=== PATIENT | male | born 1980 | race Caucasian/White ===

== ENCOUNTER 2017-10-17 21:31 | Observation (INO) | payer BC ==
--- NOTE | 2017-10-17 21:44 | PDOC ---
Rapid Medical Evaluation Time Seen by Provider: 10/17/17 21:40 Medical Evaluation: 10/17/17 21:41 I have performed a brief in person evaluation of this patient. The patient presents with chief complaint of : fainted after feeling nausea dizzy and abd pain. Pertinent PE findings: pale, diaphoresis I have ordered the following: ekg , labs The patient will proceed to the ER for further evaluation. 10/17/17 21:42
[2017-10-17] MEDS ORDERED: SODIUM CHLORIDE 0.9% 1000 ML INFUS.BAG IV ONE (21:56)
[2017-10-17 22:45] LABS: BASO % 0.2 % (0-2.0); EOS % 0.7 % (0-4.5); HEMATOCRIT 43.8 % (35.4-49); HEMOGLOBIN 14.1 GM/dL (11.7-16.9); LYMPH % 9.6 % (8-40); MCH 28.1 pg (25.7-33.7); MCHC 32.3 g/dl (32.0-35.9); MEAN PLT VOLUME 8.9 fl (7.5-11.1); MONO % 5.8 % (3.8-10.2); NEUT % 83.7 % (42.8-82.8); PLATELET COUNT 314 K/MM3 (134-434); RBC 5.03 M/mm3 (4.00-5.60); RDW 13.2 % (11.9-15.9); WHITE BLOOD COUNT 15.6 K/mm3 (4.0-10.0)
--- NOTE | 2017-10-17 22:54 | PDOC ---
History of Present Illness - General History Source: Patient, Family Exam Limitations: No Limitations - History of Present Illness Initial Comments: 10/17/17 22:55 The patient is a 36 year old male, with a significant past medical history of hypertension (on Ramipril 5mg), who presents to the emergency department s/p a syncopal episode approx. four hours ago. The patient reports that around 6pm after having a shake for dinner he began to feel dizzy, diaphoretic and nauseous while sitting on the couch watching television. The patient reports he walked to the bathroom where he syncopized and woke up on the floor. The patient reports he hit the front of his head on the floor. The patient reports that after the syncopal episode he still continued to feel lightheaded and nauseous. The patient reports he took 2 Tylenol after the syncopal episode with minor relief. The patient reports he had the exact same syncopal event happen approx. 3 years ago but reports he did not continue to feel dizzy after the syncopal episode. The patient also reports having two serious nosebleeds in the past week. He reports using a saline spray for the nosebleeds with minimal relief. He denies any recent fevers. He denies any recent, vomit, diarrhea or constipation. He denies any recent chest pain or shortness of breath. He denies any recent dysuria, frequency, urgency or hematuria. He denies recent swelling or calf tenderness. He denies recent travel or surgery. Allergies: NKA <Milo Monterroso - Last Filed: 10/17/17 22:54> <Danni Tellez - Last Filed: 10/18/17 00:09> - General Chief Complaint: Syncope/Near Syncope Stated Complaint: SYNCOPE/NEAR SYNCOPE Time Seen by Provider: 10/17/17 21:40 Past History <Milo Monterroso - Last Filed: 10/17/17 22:54> - Past Medical History COPD: No - Suicide/Smoking/Psychosocial Hx Smoking History: Never smoked Have you smoked in the past 12 months: No Information on smoking cessation initiated: No Hx Alcohol Use: No Drug/Substance Use Hx: No Substance Use Type: None <Danni Tellez - Last Filed: 10/18/17 00:09> - Past Medical History Allergies/Adverse Reactions: Allergies Allergy/AdvReac Type Severity Reaction Status Date / Time No Known Allergies Allergy Verified 10/17/17 21:53 Review of Systems - Review of Systems Comments:: 10/17/17 22:55 GENERAL/CONSTITUTIONAL: +Diaphoresis. No fever or chills. No weakness. HEAD, EYES, EARS, NOSE AND THROAT: No change in vision. No ear pain or discharge. No sore throat. CARDIOVASCULAR: No chest pain or shortness of breath. RESPIRATORY: No cough, wheezing, or hemoptysis. GASTROINTESTINAL: +Nausea. No vomiting, diarrhea or constipation. GENITOURINARY: No dysuria, frequency, or change in urination. MUSCULOSKELETAL: No joint or muscle swelling or pain. No neck or back pain. SKIN: No rash NEUROLOGIC: +Loss of consciousness. +Lightheadedness. No headache, or change in strength/sensation. ENDOCRINE: No increased thirst. No abnormal weight change. HEMATOLOGIC/LYMPHATIC: No anemia, easy bleeding, or history of blood clots. ALLERGIC/IMMUNOLOGIC: No hives or skin allergy. <Milo Monterroso - Last Filed: 10/17/17 22:54> *Physical Exam - Vital Signs Last Vital Signs Temp Pulse Resp BP Pulse Ox 98.9 F 45 L 18 70/40 99 10/17/17 21:48 10/17/17 21:48 10/17/17 21:48 10/17/17 21:48 10/17/17 21:48 - Physical Exam Comments: 10/17/17 22:56 GENERAL: Awake, alert, and fully oriented, in no acute distress HEAD: No signs of trauma EYES: PERRLA, EOMI, sclera anicteric, conjunctiva clear ENT: Auricles normal inspection, hearing grossly normal, nares patent, oropharynx clear without exudates. Moist mucosa NECK: Normal ROM, supple, no lymphadenopathy, JVD, or masses LUNGS: Breath sounds equal, clear to auscultation bilaterally. No wheezes, and no crackles HEART: Regular rate and rhythm, normal S1 and S2, no murmurs, rubs or gallops ABDOMEN: Soft, nontender, normoactive bowel sounds. No guarding, no rebound. No masses EXTREMITIES: Normal range of motion, no edema. No clubbing or cyanosis. No cords, erythema, or tenderness NEUROLOGICAL: Cranial nerves II through XII grossly intact. Normal speech, normal gait SKIN: Warm, Dry, normal turgor, no rashes or lesions noted. <Milo Monterroso - Last Filed: 10/17/17 22:54> - Vital Signs Last Vital Signs Temp Pulse Resp BP Pulse Ox 98.9 F 45 L 18 70/40 99 10/17/17 21:48 10/17/17 21:48 10/17/17 21:48 10/17/17 21:48 10/17/17 21:48 <Danni Tellez - Last Filed: 10/18/17 00:09> Heart Score/ECG Review - ECG Intrepretation Comment:: 10/17/17 22:52 sinus at 69, nl axis, nl interval, tw ave inversions III that are nonspecific, no acute st/t wave findings <Danni Tellez - Last Filed: 10/18/17 00:09> ED Treatment Course - LABORATORY CBC & Chemistry Diagram: 10/17/17 22:35 10/17/17 22:35 - Medications Given in the ED: ED Medications Discontinued Medications Generic Name Dose Route Start Last Admin Trade Name Freq PRN Reason Stop Dose Admin Sodium Chloride 1,000 ml 10/17/17 21:56 10/17/17 22:53 Normal Saline - IV 10/17/17 21:57 1,000 ml ONCE ONE Administration <Milo Monterroso - Last Filed: 10/17/17 22:54> - LABORATORY CBC & Chemistry Diagram: 10/17/17 22:35 10/17/17 22:35 - RADIOLOGY Radiology Studies Ordered: Category Date Time Status HEAD CT WITHOUT CONTRAST [CT] Stat CT Scan 10/17/17 21:56 Ordered CHEST X-RAY PORTABLE* [RAD] Stat Radiology 10/17/17 21:56 Taken <Danni Tellez - Last Filed: 10/18/17 00:09> Medical Decision Making - Medical Decision Making 10/17/17 22:53 a/p: 36yo male with syncope at home -hypotensive -diaphoretic -had abd pain and nausea - no vomiting -syncope in the bathroom - prior hx but never worked up -on ramipril -will check labs, ekg, cxr, head ct, tsh, dimer, ua -will monitor and reassess 10/18/17 00:09 pt feeling better no cp/sob bp 109/52 trop negative dimer negative elevated WBC cxr clear case discussed with Erlinda DALY for symphony - accepts pt to service obs under Dr. Manuel pts pmd is dr. clinton <Danni Tellez - Last Filed: 10/18/17 00:09> *DC/Admit/Observation/Transfer - Attestations Scribe Attestion: 10/17/17 22:56 Documentation prepared by Milo Monterroso, acting as medical billing and coding instructor for Danni Tellez DO. <Milo Monterroso - Last Filed: 10/17/17 22:54> - Discharge Dispostion Admit: Yes - Attestations Physician Attestion: 10/18/17 00:08 I, Dr. Danni Tellez DO, attest that this document has been prepared under my direction and personally reviewed by me in its entirety. I further attest, that it accurately reflects all work, treatment, procedures and medical decision -making performed by me. <Danni Tellez - Last Filed: 10/18/17 00:09> Diagnosis at time of Disposition: Syncope, Closed head injury - Discharge Dispostion Condition at time of disposition: Fair
[2017-10-17 23:22] LABS: ANION GAP 11 (8-16); BLOOD UREA NITROGEN 19 mg/dL (7-18); CALCIUM 9.3 mg/dL (8.5-10.1); CHLORIDE 98 mmol/L (98-107); CO2 29 mmol/L (21-32); CREATININE 1.2 mg/dL (0.7-1.3); GLUCOSE,RANDOM 135 mg/dL (74-106); LIPASE 114 U/L (73-393); MAGNESIUM 2.1 mg/dL (1.8-2.4); SGOT/AST 14 U/L (15-37); SGPT/ALT 24 U/L (12-78); SODIUM 138 mmol/L (136-145)
[2017-10-17 23:27] LABS: ALK PHOS 58 U/L (45-117); BILIRUBIN,TOTAL 0.6 mg/dL (0.2-1.0); TOT PROT 7.6 g/dl (6.4-8.2)
[2017-10-17 23:49] LABS: INR 1.17 (0.82-1.09); PROTHROMBIN TIME (PATIENT) 13.2 SEC (9.98-11.88)
--- NOTE | 2017-10-18 00:48 | HP ---
CHIEF COMPLAINT: syncope PCP: Vicente HISTORY OF PRESENT ILLNESS: This is a 36 year old male with past medical history significant only for HTN who presented to the ED s/p syncopal episode. Pt states that his stomach was off for a couple of hours. He got up off the couch to go into the kitchen and on the way to the kitchen became very dizzy, diaphoretic and nauseas. He thought that he was going to vomit so he went into the bathroom. He states that he was standing over the toilet and the next thing he knew he woke up on the ground. Upon arrival to the ED pt was bradycardic into the 30s, and his systolic BP was in the 70s. One hour later after IVF, vitals were improved. Upon exam pt states that he feels fine. No further GI complaints. ER course was notable for: (1) troponin neg (2) WBC 15.6 (3) ECG sinus without acute changes Recent Travel: pt denies PAST MEDICAL HISTORY: HTN PAST SURGICAL HISTORY: laser vision surgery Social History: Smoking: pt denies Alcohol: occ-none recently Drugs: occ Family History: dad with CAD, mult stents, first in his 50s mother with DM, RA 4 siblings all alive and well Allergies No Known Allergies Allergy (Verified 10/17/17 21:53) HOME MEDICATIONS: ramipril 5mg daily REVIEW OF SYSTEMS CONSTITUTIONAL: Absent: fever, chills, diaphoresis, generalized weakness, malaise, loss of appetite, weight change HEENT: Absent: rhinorrhea, nasal congestion, throat pain, throat swelling, difficulty swallowing, mouth swelling, ear pain, eye pain, visual changes CARDIOVASCULAR: Present: syncope Absent: chest pain, palpitations, irregular heart rate, lightheadedness, peripheral edema RESPIRATORY: Absent: cough, shortness of breath, dyspnea with exertion, orthopnea, wheezing, stridor, hemoptysis GASTROINTESTINAL: Present: nausea Absent: abdominal pain, abdominal distension, diarrhea, constipation, melena, hematochezia GENITOURINARY: Absent: dysuria, frequency, urgency, hesitancy, hematuria, flank pain, genital pain MUSCULOSKELETAL: Absent: myalgia, arthralgia, joint swelling, back pain, neck pain SKIN: Absent: rash, itching, pallor HEMATOLOGIC/IMMUNOLOGIC: Absent: easy bleeding, easy bruising, lymphadenopathy, frequent infections ENDOCRINE: Absent: unexplained weight gain, unexplained weight loss, heat intolerance, cold intolerance NEUROLOGIC: Absent: headache, focal weakness or paresthesias, dizziness, unsteady gait, seizure, mental status changes, bladder or bowel incontinence PSYCHIATRIC: Absent: anxiety, depression, suicidal or homicidal ideation, hallucinations. PHYSICAL EXAMINATION Vital Signs - 24 hr 3 10/17/17 21:48 Temperature 98.9 F Pulse Rate 45 L Respiratory 18 Rate Blood Pressure 70/40 O2 Sat by Pulse 99 Oximetry (%) GENERAL: Awake, alert, and fully oriented, in no acute distress. HEAD: Normal with no signs of trauma. EYES: Pupils equal, round and reactive to light, extraocular movements intact, sclera anicteric, conjunctiva clear. No lid lag. EARS, NOSE, THROAT: Ears normal, nares patent, oropharynx clear without exudates. Moist mucous membranes. NECK: Normal range of motion, supple without lymphadenopathy, JVD, or masses. LUNGS: Breath sounds equal, clear to auscultation bilaterally. No wheezes, and no crackles. No accessory muscle use. HEART: Regular rate and rhythm, normal S1 and S2 without murmur, rub or gallop. ABDOMEN: Soft, nontender, not distended, normoactive bowel sounds, no guarding, no rebound, no masses. No hepatomegaly or splenomegaly. MUSCULOSKELETAL: Normal range of motion at all joints. No bony deformities or tenderness. No CVA tenderness. UPPER EXTREMITIES: 2+ pulses, warm, well-perfused. No cyanosis. No clubbing. No peripheral edema. LOWER EXTREMITIES: 2+ pulses, warm, well-perfused. No calf tenderness. No peripheral edema. NEUROLOGICAL: Cranial nerves II-XII intact. Normal speech. Normal gait. PSYCHIATRIC: Cooperative. Good eye contact. Appropriate mood and affect. SKIN: Warm, dry, normal turgor, no rashes or lesions noted, normal capillary refill. Laboratory Results - last 24 hr 3 10/17/17 10/17/17 10/17/17 22:31 22:35 22:35 WBC RBC Hgb Hct MCV MCH MCHC RDW Plt Count MPV Neutrophils % Lymphocytes % Monocytes % Eosinophils % Basophils % PT with INR INR PTT (Actin FS) D-Dimer Sodium 138 Potassium 4.0 Chloride 98 Carbon Dioxide 29 Anion Gap 11 BUN 19 H Creatinine 1.2 Creat Clearance w eGFR > 60 Random Glucose 135 H Lactic Acid 1.2 Calcium 9.3 Magnesium 2.1 Total Bilirubin 0.6 AST 14 L ALT 24 Alkaline Phosphatase 58 Creatine Kinase 101 Troponin I < 0.02 Total Protein 7.6 Albumin 4.0 Lipase 114 Blood Type A POSITIVE Antibody Screen Negative 3 10/17/17 10/17/17 10/17/17 22:35 22:35 23:50 WBC 15.6 H RBC 5.03 Hgb 14.1 Hct 43.8 MCV 87.0 MCH 28.1 MCHC 32.3 RDW 13.2 Plt Count 314 MPV 8.9 Neutrophils % 83.7 H Lymphocytes % 9.6 Monocytes % 5.8 Eosinophils % 0.7 Basophils % 0.2 PT with INR 13.20 H INR 1.17 H PTT (Actin FS) 27.4 D-Dimer 309 Sodium Potassium Chloride Carbon Dioxide Anion Gap BUN Creatinine Creat Clearance w eGFR Random Glucose Lactic Acid Calcium Magnesium Total Bilirubin AST ALT Alkaline Phosphatase Creatine Kinase Troponin I Total Protein Albumin Lipase Blood Type Antibody Screen ECG normal sinus rhythma vent rate 69, QTC 411 flipped T wave lead 3, otherwise no T wave changes Radiology Results CT head THIS IS A PRELIMINARY REPORT FROM [facility] IMPRESSION: No evidence of pathology. THIS DOCUMENT HAS BEEN ELECTRONICALLY SIGNED Oscar Rodriguez MD 10/18/2017 01:05 EST CXR final read pending, no evidence of acute changes ASSESSMENT/PLAN: 36yM with PMH HTN presented to the ED s/p syncopal episode bradycardic and hypotensive. syncope - ct head unremarkable - troponin neg x 1, trend x 2 more - echo ordered - cont cardiac monitoring - rec cardiology consult, defer to pcp HTN - cont home ramipril DVT PPX - deferred, anticipated LOS < 48h FEN - NS @ 83cc/hr - BMP in am - NPO for now Dispo: pt currently requires further observation for management of his emergent condition Visit type - Emergency Visit Emergency Visit: Yes ED Registration Date: 10/17/17 Care time: The patient presented to the Emergency Department on the above date and was hospitalized for further evaluation of their emergent condition. - New Patient This patient is new to me today: Yes Date on this admission: 10/18/17 - Critical Care Critical Care patient: No
[2017-10-18] MEDS: SODIUM CHLORIDE 1,000 ML IV SCH ×2 (01:00→18:27)
--- NOTE | 2017-10-18 01:05 | HP ---
CHIEF COMPLAINT: PCP: HISTORY OF PRESENT ILLNESS: ER course was notable for: (1) (2) (3) Recent Travel: PAST MEDICAL HISTORY: PAST SURGICAL HISTORY: Social History: Smoking: Alcohol: Drugs: Family History: Allergies No Known Allergies Allergy (Verified 10/17/17 21:53) HOME MEDICATIONS: REVIEW OF SYSTEMS CONSTITUTIONAL: Absent: fever, chills, diaphoresis, generalized weakness, malaise, loss of appetite, weight change HEENT: Absent: rhinorrhea, nasal congestion, throat pain, throat swelling, difficulty swallowing, mouth swelling, ear pain, eye pain, visual changes CARDIOVASCULAR: Absent: chest pain, syncope, palpitations, irregular heart rate, lightheadedness , peripheral edema RESPIRATORY: Absent: cough, shortness of breath, dyspnea with exertion, orthopnea, wheezing, stridor, hemoptysis GASTROINTESTINAL: Absent: abdominal pain, abdominal distension, nausea, vomiting, diarrhea, constipation, melena, hematochezia GENITOURINARY: Absent: dysuria, frequency, urgency, hesitancy, hematuria, flank pain, genital pain MUSCULOSKELETAL: Absent: myalgia, arthralgia, joint swelling, back pain, neck pain SKIN: Absent: rash, itching, pallor HEMATOLOGIC/IMMUNOLOGIC: Absent: easy bleeding, easy bruising, lymphadenopathy, frequent infections ENDOCRINE: Absent: unexplained weight gain, unexplained weight loss, heat intolerance, cold intolerance NEUROLOGIC: Absent: headache, focal weakness or paresthesias, dizziness, unsteady gait, seizure, mental status changes, bladder or bowel incontinence PSYCHIATRIC: Absent: anxiety, depression, suicidal or homicidal ideation, hallucinations. PHYSICAL EXAMINATION Vital Signs - 24 hr 10/17/17 21:48 Temperature 98.9 F Pulse Rate 45 L Respiratory 18 Rate Blood Pressure 70/40 O2 Sat by Pulse 99 Oximetry (%) GENERAL: Awake, alert, and fully oriented, in no acute distress. HEAD: Normal with no signs of trauma. EYES: Pupils equal, round and reactive to light, extraocular movements intact, sclera anicteric, conjunctiva clear. No lid lag. EARS, NOSE, THROAT: Ears normal, nares patent, oropharynx clear without exudates. Moist mucous membranes. NECK: Normal range of motion, supple without lymphadenopathy, JVD, or masses. LUNGS: Breath sounds equal, clear to auscultation bilaterally. No wheezes, and no crackles. No accessory muscle use. HEART: Regular rate and rhythm, normal S1 and S2 without murmur, rub or gallop. ABDOMEN: Soft, nontender, not distended, normoactive bowel sounds, no guarding, no rebound, no masses. No hepatomegaly or splenomegaly. MUSCULOSKELETAL: Normal range of motion at all joints. No bony deformities or tenderness. No CVA tenderness. UPPER EXTREMITIES: 2+ pulses, warm, well-perfused. No cyanosis. No clubbing. No peripheral edema. LOWER EXTREMITIES: 2+ pulses, warm, well-perfused. No calf tenderness. No peripheral edema. NEUROLOGICAL: Cranial nerves II-XII intact. Normal speech. Normal gait. PSYCHIATRIC: Cooperative. Good eye contact. Appropriate mood and affect. SKIN: Warm, dry, normal turgor, no rashes or lesions noted, normal capillary refill. Laboratory Results - last 24 hr 10/17/17 10/17/17 10/17/17 22:31 22:35 22:35 WBC RBC Hgb Hct MCV MCH MCHC RDW Plt Count MPV Neutrophils % Lymphocytes % Monocytes % Eosinophils % Basophils % PT with INR INR PTT (Actin FS) D-Dimer Sodium 138 Potassium 4.0 Chloride 98 Carbon Dioxide 29 Anion Gap 11 BUN 19 H Creatinine 1.2 Creat Clearance w eGFR > 60 Random Glucose 135 H Lactic Acid 1.2 Calcium 9.3 Magnesium 2.1 Total Bilirubin 0.6 AST 14 L ALT 24 Alkaline Phosphatase 58 Creatine Kinase 101 Troponin I < 0.02 Total Protein 7.6 Albumin 4.0 Lipase 114 TSH 2.32 Blood Type A POSITIVE Antibody Screen Negative 10/17/17 10/17/17 10/17/17 22:35 22:35 23:50 WBC 15.6 H RBC 5.03 Hgb 14.1 Hct 43.8 MCV 87.0 MCH 28.1 MCHC 32.3 RDW 13.2 Plt Count 314 MPV 8.9 Neutrophils % 83.7 H Lymphocytes % 9.6 Monocytes % 5.8 Eosinophils % 0.7 Basophils % 0.2 PT with INR 13.20 H INR 1.17 H PTT (Actin FS) 27.4 D-Dimer 309 Sodium Potassium Chloride Carbon Dioxide Anion Gap BUN Creatinine Creat Clearance w eGFR Random Glucose Lactic Acid Calcium Magnesium Total Bilirubin AST ALT Alkaline Phosphatase Creatine Kinase Troponin I Total Protein Albumin Lipase TSH Blood Type Antibody Screen ASSESSMENT/PLAN:
[2017-10-18 06:34] LABS: URINE APPEARANCE CLEAR; URINE BILIRUBIN NEGATIVE (NEGATIVE); URINE BLOOD NEGATIVE (NEGATIVE); URINE COLOR YELLOW; URINE GLUCOSE (UA) NEGATIVE (NEGATIVE); URINE KETONE NEGATIVE (NEGATIVE); URINE LEUK ESTERASE NEGATIVE (NEGATIVE); URINE NITRITE NEGATIVE (NEGATIVE); URINE PROTEIN NEGATIVE (NEGATIVE); URINE UROBILINOGEN NEGATIVE mg/dL (0.2-1.0)
[2017-10-18 07:27] LABS: HEMATOCRIT 40.5 % (35.4-49); MEAN CELL VOLUME 87.5 fl (80-96); PLATELET COUNT 240 K/MM3 (134-434); RBC 4.63 M/mm3 (4.00-5.60); RDW 13.6 % (11.9-15.9); WHITE BLOOD COUNT 11.9 K/mm3 (4.0-10.0)
[2017-10-18 07:52] LABS: ANION GAP 7 (8-16); BLOOD UREA NITROGEN 17 mg/dL (7-18); CHLORIDE 105 mmol/L (98-107); CO2 27 mmol/L (21-32); CREATININE 0.9 mg/dL (0.7-1.3); GLUCOSE,RANDOM 104 mg/dL (74-106); POTASSIUM 4.6 mmol/L (3.5-5.1); SODIUM 139 mmol/L (136-145)
--- NOTE | 2017-10-18 09:03 | PN ---
Progress Note, Physician - Current Medication List Current Medications: Active Medications Sodium Chloride (Normal Saline -) 1,000 mls @ 83 mls/hr IV ASDIR CHEMA Last Admin: 10/18/17 01:00 Dose: 83 mls/hr Ramipril (Altace -) 5 mg PO DAILY [facility] - Objective Vital Signs: Vital Signs Temperature 98.6 F 10/18/17 06:45 Pulse Rate 84 10/18/17 06:45 Respiratory Rate 17 10/18/17 06:45 Blood Pressure 108/70 10/18/17 06:45 O2 Sat by Pulse Oximetry (%) 98 10/18/17 06:45 Labs: CBC, BMP 10/18/17 07:10 10/18/17 07:09 INR, PTT INR 1.17 (0.82-1.09) H 10/17/17 22:35 Problem List - Problems (1) HTN (hypertension) Assessment/Plan: hold off meds ivf Code(s): I10 - ESSENTIAL (PRIMARY) HYPERTENSION (2) Closed head injury Code(s): S09.90XA - UNSPECIFIED INJURY OF HEAD, INITIAL ENCOUNTER (3) Syncope Assessment/Plan: - ct head unremarkable - troponin neg x 1, trend x 2 more - echo ordered - cont cardiac monitoring - cardiology consult Code(s): R55 - SYNCOPE AND COLLAPSE
[2017-10-18] MEDS: RAMIPRIL 5 MG CAPSULE (FP) PO SCH (09:31)
[2017-10-18 12:31] VITALS: BMI 30.6
--- NOTE | 2017-10-18 13:27 | EKG ---
Test Reason : Blood Pressure : / mmHG Vent. Rate : 069 BPM Atrial Rate : 069 BPM P-R Int : 180 ms QRS Dur : 090 ms QT Int : 384 ms P-R-T Axes : 019 040 016 degrees QTc Int : 411 ms NORMAL SINUS RHYTHM NORMAL ECG NO PREVIOUS ECGS AVAILABLE Confirmed by MD EVERARDO, ASHLEY ([id number]) on 10/18/2017 1:27:01 PM Referred By: Confirmed By:ASHLEY MCGEE MD
--- NOTE | 2017-10-18 14:54 | CON.CARD ---
Consult Consult Specialty:: Cardiology Referred by:: bud Manuel Reason for Consultation:: Syncope - History of Present Illness Chief Complaint: syncope History of Present Illness: 36 year old with a pmhx of mild htn on low dose ramipril who presents with syncope. Patient came home from work and had a shake for dinner when started feeling an upset stomach. Stomach was bothering him and was watching tv for 2 hours or so and go up to go kitchen and felt sweaty, dizzy, and nausea. Went to restroom to vomit and while standing over toilet he woke up on the ground. As per chart, HR 30s and BP systolic 70s on arrival to ER. WBC 15 Cr 1.2 EKG normal sinus 69bpm, nl axis, nl st segments CXR done CT head done Echo with normal LVEF and no significant valve disease. Ddimer 300 - History Source History Provided By: Patient, Medical Record - Alcohol/Substance Use Hx Alcohol Use: No - Smoking History Smoking history: Never smoked Have you smoked in the past 12 months: No Home Medications - Allergies Allergies/Adverse Reactions: Allergies Allergy/AdvReac Type Severity Reaction Status Date / Time No Known Allergies Allergy Verified 10/17/17 21:53 Family Disease History - Family Disease History Family Disease History: Heart Disease: Father Vital Signs: Vital Signs Temperature 98.2 F 10/18/17 08:00 Pulse Rate 104 H 10/18/17 08:00 Respiratory Rate 14 10/18/17 09:00 Blood Pressure 112/74 10/18/17 08:00 O2 Sat by Pulse Oximetry (%) 96 10/18/17 09:00 Constitutional: Yes: No Distress Neck: Yes: WNL Respiratory: Yes: CTA Bilaterally Gastrointestinal: Yes: Normal Bowel Sounds, Soft Cardiovascular: Yes: Regular Rate and Rhythm JVD: No Carotid Bruit: No PMI: Non-Displaced Heart Sounds: Yes: S1, S2 Murmur: No: Systolic Murmur Edema: No - Other Data Labs, Other Data: CBC, BMP 10/18/17 07:10 10/18/17 07:09 INR, PTT INR 1.17 (0.82-1.09) H 10/17/17 22:35 Troponin, BNP 10/17/17 10/18/17 10/18/17 22:35 07:09 07:35 Troponin I < 0.02 < 0.02 Cancelled Troponin, BNP 10/17/17 10/18/17 10/18/17 22:35 07:09 07:35 Troponin I < 0.02 < 0.02 Cancelled Imaging - Results Chest X-ray: Report Reviewed EKG: Image Reviewed Problem List - Problems (1) Syncope Code(s): R55 - SYNCOPE AND COLLAPSE Assessment/Plan 36 year old with a pmhx of mild htn on low dose ramipril who presents with syncope. Patient came home from work and had a shake for dinner when started feeling an upset stomach. Stomach was bothering him and was watching tv for 2 hours or so and go up to go kitchen and felt sweaty, dizzy, and nausea. Went to restroom to vomit and while standing over toilet he woke up on the ground. As per chart, HR 30s and BP systolic 70s on arrival to ER. WBC 15 Cr 1.2 EKG normal sinus 69bpm, nl axis, nl st segments CXR done CT head done Echo with normal LVEF and no significant valve disease. Ddimer 300 1) Syncope -possibly dehydration in setting of GI viral illness. WBC 15 on admission. EKG and echo unremarkable Sinus tachy on tele with BP on low normal range with orthostatics IVF's and encourage PO intake/hydration Hold ramipril Monitor on tele for 24 hours
--- NOTE | 2017-10-18 15:39 | PN ---
Progress Note (short form) - Note Progress Note: ID Consult dictated Leukocytosis? source No clear infectious focus S/P Syncope Obtain influenza screen Blood c/s Observe off antibiotics
[2017-10-18] MEDS ORDERED: MAG HYDROX/AL HYDROX/SIMETH 30 ML UNIT-DOSE CUP PO ONE (18:30)
--- NOTE | 2017-10-19 06:32 | CONS ---
DATE OF CONSULTATION: DATE OF DICTATION: 10/18/2017 HISTORY OF PRESENT ILLNESS: A 36-year-old male, past medical history of hypertension, evaluated for leukocytosis. The patient is employed as a courtroom clerk. He reports being well until the day of admission. He had been watching TV on his couch for several hours. When he got up to go to the bathroom, he suddenly became lightheaded and had a syncopal episode in the bathroom. He sustained minor facial trauma. He was taken to the emergency room where he was noted to be hypotensive and bradycardic. Systolic blood pressure was reported to be in the 70s and heart rate in the 30s. He was also noted to have an elevated white blood cell count of 15.6. He denies any recent febrile illness. Up until this event he had been feeling well. He had no recent respiratory tract illness. No cough, sputum production, shortness of breath, chest pain. No reports of vomiting or diarrhea, although he did experience some vague abdominal bloating. No dysuria or hematuria. He lives at home with his . He denies any ill contacts at home, although he has had ill contacts at work. No recent travel or pet exposure. Patient denies risk factors for HIV, states he tested HIV negative in the recent past as he and his are in an infertility clinic. Patient states he received influenza vaccine earlier this year. He denies any symptoms suggestive of acute influenza. PAST MEDICAL HISTORY: Positive for hypertension. ALLERGIES: No known allergies. MEDICATIONS: Ramipril. SOCIAL HISTORY: Lives at home with his . His parents live downstairs. Negative history of tobacco, alcohol or illicit drug use. Works as a courtroom clerk. HIV negative per patient. SYSTEMS REVIEW:Neurologic: As per HPI. Cardiac: Negative chest pain or palpitations. Respiratory: Negative cough or sputum production. Gastrointestinal: Positive for abdominal bloating. No vomiting or diarrhea. He reports having 2 normal bowel movements today. Genitourinary: Negative for dysuria or hematuria. LABORATORY DATA: White count on admission 15.6, presently 11.9, 83 neutrophils, 9 lymphocytes, 5 monocytes, hematocrit 40.5, platelet count 240. BUN 17, creatinine 0.9. Urine leukocyte esterase negative. Liver enzymes normal. Chest x-ray negative for acute infiltrate. PHYSICAL EXAMINATION:General: He is awake and alert at the present time. He is not acutely toxic appearing, in no acute distress.Vital Signs: Temperature 98.2, blood pressure 110/68, pulse 106, regular, respirations 14 per minute. HEENT: Sclerae are anicteric. Oropharynx negative. Neck: Supple. No palpable nodes. Cardiac: Heart sounds S1, S2. Lungs: Clear. Abdomen: Soft and nontender. Extremities: Edema 1+. IMPRESSION: 1. Leukocytosis of unclear source. 2. Status post syncopal episode. No clear infectious focus for elevated white blood cell count. This may represent a leukemoid reaction. RECOMMENDATIONS: Will obtain blood cultures and influenza screen. Observe off antibiotic therapy. Case was discussed with patient's present at the time of the examination. Thank you for the kind referral. Patient declines repeat HIV testing. DICK BRISCOE M.D. [id number]
--- NOTE | 2017-10-19 08:04 | PN ---
Progress Note, Physician Chief Complaint: Cardiology consult. Telem NSR No complaints - Current Medication List Current Medications: Active Medications Sodium Chloride (Normal Saline -) 1,000 mls @ 83 mls/hr IV [facility] Last Admin: 10/18/17 18:27 Dose: 83 mls/hr Ramipril (Altace -) 5 mg PO DAILY [facility] Last Admin: 10/18/17 09:31 Dose: Not Given - Objective Vital Signs: Vital Signs Temperature 98.5 F 10/19/17 06:00 Pulse Rate 68 10/19/17 06:00 Respiratory Rate 20 10/19/17 06:00 Blood Pressure 111/70 10/19/17 06:00 O2 Sat by Pulse Oximetry (%) 96 10/18/17 21:00 Constitutional: Yes: Well Nourished, No Distress Eyes: Yes: WNL HENT: Yes: WNL Neck: Yes: WNL Cardiovascular: Yes: Regular Rate and Rhythm Respiratory: Yes: WNL, Regular, CTA Bilaterally Gastrointestinal: Yes: WNL Edema: No Labs: CBC, BMP 10/18/17 07:10 10/18/17 07:09 INR, PTT INR 1.17 (0.82-1.09) H 10/17/17 22:35 Problem List - Problems (1) Syncope Code(s): R55 - SYNCOPE AND COLLAPSE Assessment/Plan Likely vagal syncope possible in setting of infection. Consider holding ramapril until improved. Telemetry NSR. Normal echo and ECG> will sign off
[2017-10-19] MEDS: RAMIPRIL 5 MG CAPSULE (FP) PO SCH (09:04)
[2017-10-19 14:53] VITALS: BP 126/71; PULSE 79; TEMP 98.9
--- NOTE | 2017-10-19 15:14 | DS ---
Physical Examination Vital Signs: Vital Signs Temperature 98.9 F 10/19/17 14:52 Pulse Rate 79 10/19/17 14:52 Respiratory Rate 18 10/19/17 14:52 Blood Pressure 126/71 10/19/17 14:52 O2 Sat by Pulse Oximetry (%) 98 10/19/17 09:00 Constitutional: Yes: Well Nourished, No Distress, Calm Cardiovascular: Yes: Regular Rate and Rhythm Respiratory: Yes: Regular Neurological: Yes: Alert, Oriented Psychiatric: Yes: Alert, Oriented Labs: CBC, BMP 10/18/17 07:10 10/18/17 07:09 Discharge Summary Reason For Visit: SYNCOPE CLOSED HEAD INJURY Current Active Problems Closed head injury (Acute) HTN (hypertension) (Acute) Syncope (Acute) Hospital Course: This is a 36 year old male with past medical history significant only for HTN who presented to the ED s/p syncopal episode. Pt states that his stomach was off for a couple of hours. He got up off the couch to go into the kitchen and on the way to the kitchen became very dizzy, diaphoretic and nauseas. He thought that he was going to vomit so he went into the bathroom. He states that he was standing over the toilet and the next thing he knew he woke up on the ground. Upon arrival to the ED pt was bradycardic into the 30s, and his systolic BP was in the 70s. One hour later after IVF, vitals were improved. Upon exam pt states that he feels fine. No further GI complaints. Condition: Stable - Instructions Diet, Activity, Other Instructions: Decrease Ramapril to 2.5 mg once daily Follow up with PCP within 2 weeks Disposition: HOME - Home Medications Comprehensive Discharge Medication List: Ambulatory Orders Ramipril 2.5 mg PO DAILY #30 capsule 10/19/17
== END 2017-10-19 17:31 | disposition home or self-care (01) ==
LOC: JER 21:31 → JERBED 10-18 00:08 → UNDOADMOB 10-18 01:03 → J4W 10-18 07:16
PROVIDERS: ADMIT Internal Medicine; ATTEND Family Medicine
PROC: 3E0337Z Introduction of Electrolytic and Water Balance Substance into Peripheral Vein, Percutaneous Approach (ICD-10-PCS; principal; 2017-10-18)
DX: R42 Dizziness and giddiness (principal); S09.90XA Unspecified injury of head, initial encounter; I10 Essential (primary) hypertension; R00.1 Bradycardia, unspecified; W18.39XA Other fall on same level, initial encounter; Y93.89 Activity, other specified; Y92.002 Bathroom of unspecified non-institutional (private) residence as the place of occurrence of the external cause
CPT/HCPCS: 36415; 70450-TC; 71045-TC; 80048; 80053; 81003; 82550; 83605; 83690; 83735; 84100; 84443; 84484; 85025; 85027; 85379; 85610; 85730; 86850; 86900; 86901; 87040; 87804; 93005; 93010; 93306-TC; 99284-25; G0378